=== PATIENT | male | born 1990 | race African-American/Black ===

== ENCOUNTER 2018-01-20 12:26 | Emergency (ER) | payer MEDICAID ==
[~2018-01-20] VITALS: Ht 177.8 cm; Wt 72.7 kg
[2018-01-20 14:41] VITALS: BP 130/78
== END 2018-01-20 14:52 | disposition home or self-care (01) ==
LOC: EMS 12:28
DX: M79.2 Neuralgia and neuritis, unspecified (principal); R03.0 Elevated blood-pressure reading, without diagnosis of hypertension; F17.210 Nicotine dependence, cigarettes, uncomplicated; F12.10 Cannabis abuse, uncomplicated
CPT/HCPCS: 99283